=== PATIENT | male | born 1945 | race Caucasian/White ===

== ENCOUNTER 2018-05-17 07:29 | Emergency (ER) | payer OTHER ==
[2018-05-17] MEDS ORDERED: EPINEPHrine 1 MG/10 ML SYR IV ONE (07:30)
[2018-05-17] MEDS ORDERED: NA CHLORIDE 0.9% 1,000 ML IV ONE (07:30)
--- NOTE | 2018-05-17 08:19 | EDPHYS ---
Physician Documentation [facility] Name: Tolu Aaron Age: 73 yrs Sex: Male : 1945 Arrival Date: 05/17/2018 Time: 07:39 Bed 3 Private MD: ED Physician John Goodwin HPI: 05/17 07:42 This 73 yrs old Male presents to ER via Unassigned with complaints of kdr Unresponsive. 07:42 Preceding the arrest, the patient was found down by family. The arrest occurred at [facility]. Pre-hospital course: EMS reports that the patient was unresponsive for about 20 minutes prior to EMS arrival. Initial rhythm was V-fib for EMS. They shocked initially and then there was asystole. CPR continued and ACLS initiated. See nursing notes for medication and shocking. On arrival, the patient was unresponsive and in PEA on the autopulse.. The patient has not experienced similar symptoms in the past. The patient has not recently seen a physician. After discussion with the , the patient had been unresponsive for 20-30 minutes prior to EMS arrival.. Historical: - Allergies: 07:57 Unable to obtain; hb - Home Meds: 07:57 Unable to obtain [Active]; hb - PMHx: 07:57 CHF; hb - PSHx: 07:57 Unable to obtain; hb - Immunization history:: unable to obtain. - Social history:: Smoking status: unknown. - Ebola Screening: : Unable to complete screening because patient is unresponsive. ROS: 07:42 Constitutional: Unable to obtain since the patient was unresponsive and the was kdr not initially available. After discussion with the , it was noted that the patient had not been feeling well for some time but he had refused to go to the doctor. He had a habit of drinking alcohol in the evening and then up early in the morning with coffee and smoking in the garage in the mornings. Exam: 07:42 Constitutional: This is a well developed, well nourished patient who is unresponsive kdr Head/Face: Normocephalic, atraumatic. ENT: Nares patent. No nasal discharge, no septal abnormalities noted. Tympanic membranes are normal and external auditory canals are clear. Oropharynx with no redness, swelling, or masses, exudates, or evidence of obstruction, uvula midline. Mucous membranes moist. Neck: Trachea midline, no thyromegaly or masses palpated, and no cervical lymphadenopathy. Supple, full range of motion without nuchal rigidity, or vertebral point tenderness. No Meningismus. Chest/axilla: Normal chest wall appearance and motion. Nontender with no deformity. No lesions are appreciated. Cardiovascular: Regular rate and rhythm with a normal S1 and S2. No gallops, murmurs, or rubs. Normal PMI, no JVD. No pulse deficits. Respiratory: Lungs have equal breath sounds bilaterally, clear to auscultation and percussion. No rales, rhonchi or wheezes noted. No increased work of breathing, no retractions or nasal flaring. Abdomen/GI: Soft, non-tender, with normal bowel sounds. No distension or tympany. No guarding or rebound. No evidence of tenderness throughout. Back: No spinal tenderness. No costovertebral tenderness. Full range of motion. Skin: Warm, dry with normal turgor. Normal color with no rashes, no lesions, and no evidence of cellulitis. MS/ Extremity: Pulses equal, no cyanosis. Neurovascular intact. Full, normal range of motion. Psych: Awake, alert, with orientation to person, place and time. Behavior, mood, and affect are within normal limits. 07:42 Eyes: Pupils: are fixed and dilated. Vital Signs: 07:30 BP 159 / 17; Temp 96.6(R); Pulse Ox 97% on 15 lpm ETT ambu; ph 07:30 BP w/ compressions ph Staci Coma Score: 07:30 Eye Response: none(1). Verbal Response: none(1). Motor Response: none(1). Total: 3. ph MDM: 07:42 Data reviewed: vital signs, nurses notes. ED course: See nursing notes for kdr interventions. 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 Likelihood of resuscitation was extremely low at time of arrival in the ED. Several rounds of medication given. The patient continued in either PEA or agonal rhythm. Since the patient had been unresponsive for nearly an hour, had been unresponsive and apparently not breathing for 20-30 minutes prior to initiation of ACLS, resuscitation efforts were terminated. The arrived shortly afterward and she was informed.. 08:18 Patient medically screened. kdr 05/17 07:48 Order name: Glucose, Ancillary Testing EDMS Administered Medications: 07:29 Drug: EPINEPHrine 0.1mg/mL 1:10,000 1 mg Route: IVP; Site: right antecubital; ph 07:38 Follow up: Response: No adverse reaction; Cardiac rhythm is unchanged ph 07:30 Drug: NS 0.9% 1000 ml Route: IV; Rate: 1 bolus; Site: right antecubital; ph 07:38 Follow up: Response: No adverse reaction; IV Status: Order to discontinue infusion ph 07:32 Drug: Sodium Bicarbonate 1 amp Route: IVP; Site: right antecubital; ph 07:38 Follow up: Response: No adverse reaction; Cardiac rhythm is unchanged ph 07:33 Drug: EPINEPHrine 0.1mg/mL 1:10,000 1 mg Route: IVP; Site: right antecubital; ph 07:38 Follow up: Response: No adverse reaction; Cardiac rhythm is unchanged ph 07:36 Drug: EPINEPHrine 0.1mg/mL 1:10,000 1 mg Route: IVP; Site: right antecubital; ph 07:38 Follow up: Response: No adverse reaction; Cardiac rhythm is unchanged ph Point of Care Testing: Blood Glucose: 07:37 Blood Glucose: 172 mg/dL; ph Ranges: Critical Glucose Levels:Adult <50 mg/dl or >400 mg/dl <40 mg/dl or >180 mg/dl Disposition: 08:17 . kdr Disposition: Patient pronounced on 05/17/18 07:38 by John Goodwin. Impression: Cardiopulmonary arrest. - Released to Home. Signatures: John Goodwin MD MD [facility] Lynne Willis RN RN Kaylin Walker RN RN Michelle Avilez RN RN Corrections: (The following items were deleted from the chart) 10:10 08:18 05/17/2018 08:18 Patient pronounced on 05/17/2018 at 07:38 by John Goodwin. Impression: Cardiopulmonary arrest. Released to Home. kdr
--- NOTE | 2018-05-17 08:19 | ER ---
Nurse's Notes [facility] Name: Tolu Aaron Age: 73 yrs Sex: Male : 1945 Arrival Date: 05/17/2018 Time: 07:39 Bed 3 Private MD: Diagnosis: Cardiopulmonary arrest Presentation: 05/17 07:27 Presenting complaint: Presenting complaint: EMS states: Pt found down by when she ph awoke at approx 0620, reports hearing up prior to finding him unresponsive, compressions initiated by PD and ACLS protocol started by EMS at apprx 0640, initial rhythm V-fib, pt shocked x 1, rhythm asystole, amiodarone administered 300 x 1 then 150 x and pulse returned then changed to V-fib, pt shocked 1 additional time approx 10 min 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 07:27 Acuity: DIVINA 1 hb 07:27 Care prior to arrival: Assisted ventilation, Oral intubation, 8.0 ET tube, measuring 22 ph \T\ lip CPR via thumper Medication(s) given: amiodarone 300 x 1, 150 x 1, Epinephrine x 4. Compressions began at 06:40. 07:27 Method Of Arrival: EMS: [facility] 07:27 Transition of care: patient was not received from another setting of care. Onset of ph symptoms was May 17, 2018. Risk Assessment: Do you want to hurt yourself or someone else? Unable to obtain. Initial Sepsis Screen: Does the patient meet any 2 criteria? No. Patient's initial sepsis screen is negative. Does the patient have a suspected source of infection? No. Patient's initial sepsis screen is negative. 07:54 Acuity: DIVINA 1 ph Historical: - Allergies: 07:57 Unable to obtain; hb - Home Meds: 07:57 Unable to obtain [Active]; hb - PMHx: 07:57 CHF; hb - PSHx: 07:57 Unable to obtain; hb - Immunization history:: unable to obtain. - Social history:: Smoking status: unknown. - Ebola Screening: : Unable to complete screening because patient is unresponsive. Screenin:45 Abuse screen: unable to obtain. Nutritional screening: unable to obtain. Tuberculosis hb screening: unable to obtain. Fall Risk None identified. Assessment: 07:27 CPR assessment: unresponsive, pupils fixed \T\ dilated, intubated, Ambu ventilation, ph cyanotic. Cardiac rhythm is PEA. General: Appears ill, Behavior is unresponsive. Neuro: Level of Consciousness is unresponsive, Oriented to none. Cardiovascular: Capillary refill is > 3 seconds in bilateral fingers toes Rhythm is PEA. Respiratory: Airway via oral intubation Trachea midline. GI: Abdomen is round. Derm: Skin with poor turgor Skin is dusky, mottled, Skin temperature is cool. 07:30 Reassessment: Pradeep paused for pulse check. Pain: Unable to use pain scale. Patient is ph intubated. Patient is unresponsive. Cardiovascular: Rhythm is PEA. 07:35 Reassessment: Compressions via Pradeep paused for pulse check. Cardiovascular: Rhythm is ph asystole. 07:38 Reassessment: Compressions via Pradeep paused for pulse check, time of 0738, ph pronounced by Dr Goodwin. Cardiovascular: Rhythm is PEA. 08:55 Reassessment: Family at bedside. ph 10:05 Reassessment: Undertaker at bedside, pt released to [facility]. ph Vital Signs: 07:30 BP 159 / 17; Temp 96.6(R); Pulse Ox 97% on 15 lpm ETT ambu; ph 07:30 BP w/ compressions ph Staci Coma Score: 07:30 Eye Response: none(1). Verbal Response: none(1). Motor Response: none(1). Total: 3. ph ED Course: 07:30 Arm band placed on. ph 07:30 Patient has correct armband on for positive identification. Bed in low position. ph surveillance monitor on. Pulse ox on. NIBP on. 07:30 Maintain EMS IV. Dressing intact. Gauge \T\ site: 20 RAC. 15 G IO to R leg. ph 07:39 Patient arrived in ED. bd 07:40 No provider procedures requiring assistance completed. ph 07:41 John Goodwin MD is Attending Physician. kdr 07:47 called HOLLY leonard to call virtual customer assistant lead consultant. bd 07:52 Kaylin Walker, BAILEY is Primary Nurse. ph 07:59 Triage completed. hb 08:17 John Goodwin MD is Pronouncing Provider. kdr 08:39 Pt , IVs remain in place. ph Administered Medications: 07:29 Drug: EPINEPHrine 0.1mg/mL 1:10,000 1 mg Route: IVP; Site: right antecubital; ph 07:38 Follow up: Response: No adverse reaction; Cardiac rhythm is unchanged ph 07:30 Drug: NS 0.9% 1000 ml Route: IV; Rate: 1 bolus; Site: right antecubital; ph 07:38 Follow up: Response: No adverse reaction; IV Status: Order to discontinue infusion ph 07:32 Drug: Sodium Bicarbonate 1 amp Route: IVP; Site: right antecubital; ph 07:38 Follow up: Response: No adverse reaction; Cardiac rhythm is unchanged ph 07:33 Drug: EPINEPHrine 0.1mg/mL 1:10,000 1 mg Route: IVP; Site: right antecubital; ph 07:38 Follow up: Response: No adverse reaction; Cardiac rhythm is unchanged ph 07:36 Drug: EPINEPHrine 0.1mg/mL 1:10,000 1 mg Route: IVP; Site: right antecubital; ph 07:38 Follow up: Response: No adverse reaction; Cardiac rhythm is unchanged ph Point of Care Testing: Blood Glucose: 07:37 Blood Glucose: 172 mg/dL; ph Ranges: Outcome: 07:38 Outcome Patient ph 10:10 Patient left the ED. ss 10:10 Patient : Time of 07:38 Pronounced by John Goodwin MD Body to ph home. 10:10 Condition: Signatures: Ivone Pettit Kevin, MD MD [facility] Lynne Willis RN RN Kaylin Walker RN RN Michelle Avilez RN RN Corrections: (The following items were deleted from the chart) 08:02 07:27 Presenting complaint: ph ph 08:16 08:16 Response: No adverse reaction; Cardiac rhythm is unchanged ph ph 08:27 07:54 Method Of Arrival: EMS: [facility] ph ph 08:40 07:27 Care prior to arrival: Assisted ventilation, Oral intubation, CPR via thumper ph Medication(s) given: amiodarone 300 x 1, 150 x 1, Epinephrine x 4 ph
== END 2018-05-17 10:10 | disposition expired ==
LOC: ER 07:29
DX: I46.9 Cardiac arrest, cause unspecified (principal); I50.9 Heart failure, unspecified
CPT/HCPCS: 82962; 92950; 96374; 96375; 99285; J0171; J7030